=== PATIENT | male | born 1995 | race Two or more races ===

== ENCOUNTER 2021-08-06 16:33 | Emergency (ER) | payer OTHER ==
[2021-08-06 16:41] VITALS: BP 136/71
--- NOTE | 2021-08-06 16:49 | ED Physician Documentation ---
PD HPI ABD PAIN - Stated complaint Stated Complaint: THROWING UP BLOOD - Chief complaint Chief Complaint: Abd Pain - History obtained from History obtained from: Patient - Additional information Additional information: About half an hour ago he took the Paqui 1 chip spice challenge. He developed severe abdominal cramps and was laying on the floor in pain and sweating and then vomited. The vomit was mixed with vomit with blood, a small to moderate amount necessitating his bringing him to the emergency department for evaluation. He is feeling better now. Review of Systems Constitutional: denies: Fever, Chills Throat: reports: Reviewed and negative Cardiac: reports: Reviewed and negative PD PAST MEDICAL HISTORY - Allergies Allergies/Adverse Reactions: Allergies Allergy/AdvReac Type Severity Reaction Status Date / Time No Known Drug Allergies Allergy Verified 08/06/21 16:41 PD ED PE NORMAL - Vitals Vital signs reviewed: Yes - General General: Alert and oriented X 3, No acute distress - Abdomen Abdomen: Normal bowel sounds, Soft, Non tender - Neuro Neuro: Alert and oriented X 3, Normal speech Results - Vitals Vitals: Vital Signs - 24 hr 08/06/21 16:37 Temperature 36.1 C L Heart Rate 56 L Respiratory 16 Rate Blood Pressure 136/71 H O2 Saturation 100 Oxygen O2 Source Room air PD MEDICAL DECISION MAKING - ED course ED course: Discussed with him that these are probably normal side effects after the challenge he took. It was not all hematemesis and he really has no risk factors for liver disease/coagulopathy etc. He declined medication such as a GI cocktail here. Departure - Departure Disposition: 01 Home, Self Care Clinical Impression: Gastritis Qualifiers: Gastritis type: unspecified gastritis Chronicity: acute Gastritis bleeding: with bleeding Qualified Code(s): K29.01 - Acute gastritis with bleeding Condition: Good Record reviewed to determine appropriate education?: Yes Instructions: ED Gastritis Comments: Eat light and bland food for the next day or so. I would avoid taking the paqui one chip challenge again in the future.
== END 2021-08-06 16:51 | disposition home or self-care (01) ==
LOC: ED 16:33
DX: K29.01 Acute gastritis with bleeding (principal)
CPT/HCPCS: 99281; 99282

== ENCOUNTER 2023-06-05 10:28 | Outpatient (CLI) | payer OTHER ==
--- NOTE | 2023-06-05 11:40 | Sleep Patient Instructions ---
Sleep Center Visit Summary - Patient Visit Information Reason for Visit: Initial consult for evaluation of sleep disordered breathing and other sleep issues. - Patient Instructions Instructions Attached: Sleep Study, Sleep Clinic Visit, Sleep Study Home Monitor Additional Instructions: You will be completing a sleep study, either an in-lab polysomnography (PSG) or home sleep study (HST). You will follow-up in the sleep care office after the sleep study is completed to hear the results and talk about therapy, if needed. You will be called by our office staff to schedule this appointment, but you may contact us with any questions. - Clinic Information Contact: [facility] [address] [place] [email or web address] T: [phone]
--- NOTE | 2023-06-05 11:43 | SLEEP CARE CONSULTATION ---
Information from patient questionnaire entered by Juarez Bowser. I have reviewed and concur with the information entered by Juarez Bowser. This document represents the service I personally performed and the decisions made by me, Skye Ac ARNP. History of Present Illness Service Date and Time: 06/05/2023 1028 Reason for Visit: New patient Chief Complaint: reports: Unrefreshed sleep, Snoring, Excessive daytime sleepiness, Observed pauses in breathing, Fatigue Date of Onset: 3YRS Usual bedtime: 2100 Time it takes to fall asleep: 30MIN Snores at night: Yes Observed to quit breathing while asleep: Yes Sleeps alone due to snoring: No Number of times waking at night: 2 Reasons for waking at night: reports: Choking, Snoring, Gasping for air, Bathroom Toss, Turn, or Twitch while sleeping: Yes Recalls having dreams: No Usually gets out of bed at: 0430 Feels refreshed in the morning: No Morning headache: Yes (3 times a week) Sleepy or fatigued during the day: Yes Ever fallen asleep while driving: No Takes day naps: Yes (only on weekends, 30-60 minutes while child sleeps) Dreams during day naps: No Prior sleep studies: No Additional HPI information: I had the pleasure of seeing GABY WEIR today regarding the possibility of him having a sleep disorder. His current complaints are excessive daytime sleepiness, fatigue, observed pauses in breathing, snoring and unrefreshed s leep. He states his is concerned about his excessive loud snoring and pauses in breathing. It sounds like he cannot breathe out through mouth and nose, sometimes. He states he is tired all the time. He usually wakes up groggy and with a mild headache. The headache resolves in about 20 minutes without medication. 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 Patient is and lives in [place]. Have you smoked in the past 12 months: No Alcohol use: Yes Alcohol amount and frequency: ONCE A MONTH FEW Caffeine use: Yes Caffeine amount and frequency: 300MG 3 X WEEK, pre-workout Family History Family history of sleep disordered breathing: Yes Family Hx Sleep Apnea: Father: Snoring, Sibling: Snoring Allergies and Home Medications Known drug allergies: No Drug allergies reviewed: Yes Home medication list reviewed: Yes (vitamin supplements, no prescribed medications) Allergy and home medication list: Allergies No Known Drug Allergies Allergy (Verified 06/04/23 11:06) Review of Systems Cardiovascular: denies: high blood pressure Gastrointestinal: denies: heartburn Neurological: denies: headaches Psychiatric: denies: anxiety, depression Ear/Nose/Throat: reports: wisdom teeth removed. denies: tonsillectomy Endocrine: denies: thyroid disease Immunologic: reports: allergies to food or environment (cats) Physical Exam Vital signs obtained and entered by: JUAREZ Garcia MA Blood Pressure: 128/80 (LEFT ARM) Cuff size: regular Heart Rate: 55 O2 Saturation: 98 Height: 5 ft 9 in Weight: 215 lb 6.4 oz Body Mass Index: 31.8 BMI Classification: Obese Neck circumference: 15.5 Nostrils: patent to airflow Mouth and throat: normal Soft palate: normal Hard palate: normal Uvula: long Uvula visualization: 100% Mallampati Class I Tongue: enlarged in size with teeth skelton on lateral edges Tonsils: 2+ Neck: normal w/o lymphadenopathy or thyromegaly Heart: regular rate and rhythm Lungs: clear bilaterally Impression and Plan 1. Suspected Obstructive Sleep Apnea-Hypopnea Syndrome, as suggested by a history of loud and irregular snoring, observed cessation of breath while asleep, gasping or choking in sleep, morning headache, unrefreshed sleep, cognitive impairment, and excessive daytime sleepiness. Narrow oropharynx and obesity are common predisposing factors for obstructive sleep apnea-hypopnea syndrome. I recommend proceeding to polysomnography to confirm the diagnosis and to assess severity. If the patient has significant sleep disordered breathing, a manual CPAP titration study will also be performed to find the optimal treatment pressure. I informed the patient of what the sleep studies involve and after some discussion, obtained agreement to proceed. The pathophysiology of obs tructive sleep apnea-hypopnea syndrome was discussed with the patient and health risks of cardiovascular and cerebrovascular disease if not treated. 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 Patient agreed to plan. * Schedule polysomnography. * Avoid long distance driving or driving when feeling sleepy. * Avoid alcohol, sedative and muscle relaxant around bedtime. * Attempt to lose weight. * Review instructions provided by trained office staff on how to prepare for the sleep study. * Return for follow-up after sleep study completed. Counseling Topics: Weight loss health impact Visit Type: In Office Time Spent with Patient (minutes): 30 Provider Statement: I spent 100% of the Face to Face Visit with the patient with greater than 50% spent counseling the patient and coordination of care.
[2023-06-05 11:51] VITALS: BP 128/80; O2SAT 98
== END 2023-06-05 10:29 | disposition home or self-care (01) ==
LOC: SC 10:28
PROVIDERS: ATTEND Nurse Practitioner Family
DX: R06.83 Snoring (principal); G47.8 Other sleep disorders; R06.81 Apnea, not elsewhere classified; R51.9 Headache, unspecified; G47.10 Hypersomnia, unspecified; R53.83 Other fatigue; E66.9 Obesity, unspecified; Z68.31 Body mass index [BMI] 31.0-31.9, adult
CPT/HCPCS: 99203; 99212

== ENCOUNTER 2023-07-08 19:18 | Outpatient (CLI) | payer OTHER | END 2023-07-08 19:19 | disposition home or self-care (01) | LOC: SC 19:18 | PROVIDERS: ATTEND Nurse Practitioner Family | DX: G47.33 Obstructive sleep apnea (adult) (pediatric) (principal); E66.9 Obesity, unspecified; Z68.31 Body mass index [BMI] 31.0-31.9, adult | CPT/HCPCS: 95810 ==

== ENCOUNTER 2023-09-11 13:30 | Outpatient (CLI) | payer OTHER ==
--- NOTE | 2023-09-11 14:04 | Sleep Patient Instructions ---
Sleep Center Visit Summary - Patient Visit Information Reason for Visit: First Compliance Visit for PAP therapy - Patient Instructions Additional Instructions: You were here for follow up of CPAP therapy. You will be continued on CPAP therapy with pressure at 9-12 cmH2O. Please let us know if the pressure change is uncomfortable and we can make further adjustments of the pressure. You should follow up with sleep care in 1-2 months. You may contact us sooner for any questions or concerns. - Clinic Information Contact: [facility] [address] [place] [address] [email or web address] T: [phone]
--- NOTE | 2023-09-11 14:09 | SLEEP CARE CONSULTATION ---
Information from patient questionnaire entered by Emilia Bowser. I have reviewed and concur with the information entered by Emilia Bowser. This document represents the service I personally performed and the decisions made by me, Skye Ac ARNP. History of Present Illness Service Date and Time: 09/11/2023 1330 Previous diagnosis: Severe, Obstructive Sleep Apnea-Hypopnea Syndrome AHI: 43.8 (06/2023) Reason for follow up: first compliance Equipment type: CPAP (ANTOLIN G3; PT NEEDS TO BRING IN MACHINE) Equipment obtained from: Other ([facility]) Mask style: Full face Backup mask available: Yes Last cushion change: about 1 month Prior sleep studies: No Type of Sleep Study: Polysomnography (COMPLETED 07/08/23) HPI additional information: GABY WEIR was diagnosed to have severe, AHI 43.8, obstructive sleep apnea-hypo pnea syndrome and returned today for CPAP therapy first compliance follow-up. Sleep Study - Results Type of Sleep Study: Polysomnography (COMPLETED 07/08/23) Prior sleep studies: No CPAP Compliance Data - Data Reviewed with Patient Average duration of nightly device use: 5 hours 7 minutes Compliance rate %: 66.7 (30/30 days used) Current pressure setting (cmH2O): 5-15 (avg 7.3, P95 9.6) Average residual AHI: 5.8 Central apnea: 0.4 Obstructive apnea: 4.8 Average large leak: 6.6 L/min or 4 minutes Subjective Missed days of use due to: reports: other (getting up with child and forgetting to put mask back on) Patient concerns: denies: aerophagia, mask discomfort, air blowing in eyes, mask leak noise, condensation in mask/hose, nasal congestion, dry mouth, nose, throat, epistaxis Observed to snore while using device: No Current pressure setting perceived as: comfortable On therapy, patient: reports: sleeping better, awakening more refreshed, being more awake and alert during the day, more rested overall. denies: drowsiness while driving Initial [place] Sleepiness Scale score: 17 (06/05/23) Current [place] Sleepiness Scale score: 6 (09/11/23) Allergies and Home Medications Known drug allergies: No Drug allergies reviewed: Yes Home medication list reviewed: Yes (no changes) Allergy and home medication list: Allergies No Known Drug Allergies Allergy (Verified 09/10/23 14:59) Review of Systems Review of systems same as previous: Yes (no changes) Physical Exam Vital signs obtained and entered by: EMILIA Garcia MA Blood Pressure: 102/64 (LEFT ARM) Cuff size: regular Heart Rate: 61 O2 Saturation: 99 Height: 5 ft 9 in Weight: 218 lb 6.4 oz Body Mass Index: 32.2 BMI Classification: Obese Impression and Plan 1. Obstructive Sleep Apnea-Hypopnea Syndrome, severe, with good treatment compliance and fair apnea control with minimal elevation fo residual AHI. On CPAP therapy, the patient has better sleep quality and is more rested overall. Patient states since switching from the smaller cushion to the large cushion the mask is much more comfortable and he has been keeping it on better. The patients pressure will be changed to autoCPAP 9-12 cmH20 to reflect pressure being used and reduce AHI. Patient advised to contact me if pressure change is uncomfortable so that it can be adjusted. Goals for apnea control discussed. Patient's apnea severity and rationale for treatment to reduce apnea, improve sleep quality and reduce cardiovascular and cerebrovascular events was reviewed. 2. Obesity, unspecified. Currently patients BMI is 32.2. Obesity increases the risk of apnea, CPAP pressure requirements and overall health risks especially cardiovascular and diabetes. Thus patient is advised to lose weight. * Change auto CPAP pressure to 9-12 cmH2O * Notify me if snoring with mask or feeling that the pressure is too much or too little * Attempt to lose weight * Call this office if any problems using CPAP * Return for follow up in 1-2 months, or sooner if concerns arise Counseling Topics: Spare mask, Weight loss health impact Follow up with Sleep Care in: 1-2 months Visit Type: In Office Time Spent with Patient (minutes): 20 Provider Statement: I spent 100% of the Face to Face Visit with the patient with greater than 50% spent counseling the patient and coordination of care.
[2023-09-11 14:13] VITALS: BP 102/64; O2SAT 99
== END 2023-09-11 13:31 | disposition home or self-care (01) ==
LOC: SC 13:30
PROVIDERS: ATTEND Nurse Practitioner Family
DX: G47.33 Obstructive sleep apnea (adult) (pediatric) (principal); E66.9 Obesity, unspecified; Z68.32 Body mass index [BMI] 32.0-32.9, adult
CPT/HCPCS: 99212; 99213